=== PATIENT | female | born 1990 | race Caucasian/White ===

== ENCOUNTER 2016-07-12 11:06 | Emergency (ER) | payer OTHER ==
--- NOTE | 2016-07-12 11:33 | CPEKG ---
Heart Rate: 82 RR Interval: 732 P-R Interval: 132 QRSD Interval: 84 QT Interval: 368 QTC Interval: 430 P [place]: 11 QRS [place]: 19 T Wave [place]: 43 EKG Severity - NORMAL ECG - EKG Impression: SINUS RHYTHM Electronically Signed By: Jacklyn Sheldon 12-Jul-2016 16:50:36
[2016-07-12 11:50] LABS: % IMMATURE GRANULYOCYTES 0.2 % (0.0-1.1); ABSOLUTE IMMATURE GRANULOCYTES 0.01 10^3/uL (0.00-0.10); ADD DIFF? NO; ADD MORPH? NO; ADD SCAN? NO; ATYPICAL LYMPHOCYTE FLAG 10 (0-99); FRAGMENT RBC FLAG 0 (0-99); HEMATOCRIT 39.1 % (38.0-47.0); HEMOGLOBIN 13.4 g/dL (12.6-16.3); LEFT SHIFT FLG 0 (0-99); LIPEMIA HEMOLYSIS FLAG 90 (0-99); MEAN CELL HEMOGLOBIN 29.8 pg (27.9-34.1); MEAN CELL HEMOGLOBIN CONCENTR. 34.3 g/dL (32.4-36.7); MEAN CELL VOLUME 86.9 fL (81.5-99.8); MEAN PLATELET VOLUME 10.6 fL (8.7-11.7); PLATELET CLUMPS FLAG 0 (0-99); PLATELET COUNT 304 10^3/uL (150-400); RED CELL DISTRIBUTION WIDTH 12.9 % (11.5-15.2)
[2016-07-12 12:09] LABS: ANION GAP 13 mEq/L (8-16); CALCIUM 9.2 mg/dL (8.5-10.4); CARBON DIOXIDE 22 mEq/l (22-31); CHLORIDE 106 mEq/L (97-110); CREATININE 0.7 mg/dL (0.6-1.0); GLOMERULAR FILTRATION RATE > 60; GLUCOSE 83 mg/dL (70-100); POTASSIUM 4.2 mEq/L (3.5-5.2); SODIUM 141 mEq/L (134-144)
--- NOTE | 2016-07-12 12:13 | DX ---
PA and lateral chest History: Chest pain and tightness. Comparison: None available. Findings: The lungs are clear. There is no pneumothorax or pleural effusion. The heart and pulmona ry vasculature are normal. Minimal leftward curvature of the lower thoracic spine is noted. Impression: No acute findings in the chest.
[2016-07-12 12:21] LABS: TROPONIN I < 0.012 ng/mL (0-0.034)
--- NOTE | 2016-07-12 12:48 | EDPHY ---
H & P Stated Complaint: left ant chest pain worse with movement x 1 day - Personal History LMP (Females 10-55): 22-28 Days Ago Current Tetanus/Diphtheria Vaccine: Unsure Current Tetanus Diphtheria and Acellular Pertussis (TDAP): Unsure - Medical/Surgical History Hx Asthma: No Hx Chronic Respiratory Disease: No Hx Diabetes: No Hx Cardiac Disease: No Hx Renal Disease: No Hx Cirrhosis: No Hx Alcoholism: No Hx HIV/AIDS: No Hx Splenectomy or Spleen Trauma: No Other PMH: on oral control. recent air travel 2 weeks ago - Social History Smoking Status: Never smoked HPI/ROS: CHIEF COMPLAINT: Left-sided chest pain for the past 2 days HISTORY OF PRESENT ILLNESS: 25-year-old immunocompetent female with no coagulopathic disorder, nonsmoker, flew from [place] 2 weeks ago, complaining of mild left-sided chest pain which is reproducible with range of motion of the left upper extremity for the past 48 hours. Atraumatic. No dyspnea. No radiation of pain. She has been able to perform her usual cardiovascular workouts including aggressive cardio workout last evening and did not experience chest pain ordyspnea with exertion and did not have to cease these activities prematurely. No trauma. No back pain. No peripheral edema or discoloration. No thromboembolic disorder history PRIMARY CARE PROVIDER: none locally REVIEW OF SYSTEMS: A ten point review of systems was performed and is negative with the exception of the items mentioned in the HPI PAST MEDICAL & SURGICAL HISTORY: No history of coagulopathic disorder or cardiac disease SOCIAL HISTORY:nonsmoker . No drug use FAMILY HISTORY: No family history of coagulopathic disorder. No family history of premature cardiac disease PHYSICAL EXAM (Prior to examination, patient consented to physical exam, hands were washed and my usual and customary physical exam procedures followed) 1) GENERAL: Well-developed, well-nourished, alert and oriented. Appears to be in no acute distress. 2) HEAD: Normocephalic, atraumatic 3) HEENT: Pupils equal, round, reactive to light bilaterally. Sclera anicteric. Nasopharynx, oropharynx, clear, no lesions. Ears bilaterally with normal tympanic membranes. 4) NECK: Full range of motion, no meningeal signs. 5) LUNGS: Clear auscultation bilaterally, no wheezes, no rhonchi, no retractions. 6) HEART: Regular rate and rhythm, no murmur, no heave, no gallop. 7) ABDOMEN: No guarding, no rebound, no focal tenderness, negative McBurney's, negative Hunter's, negative Rovsing's, negative peritoneal sign, 8) MUSCULOSKELETAL: Moving all extremities, no focal areas of tenderness, no obvious trauma. No peripheral edema or discoloration. Negative Homans no palpable cord 9) BACK: No CVA tenderness, no midline vertebral tenderness, no fluctuance, no step-off, no obvious trauma, no visual or palpable abnormality. 10) SKIN: No rash, no petechiae. 11) Psychiatric: Patient is oriented X 3, there is no agitation. DIFFERENTIAL DIAGNOSIS: In no particular order, including but not limited to myocardial ischemia, pulmonary embolus, chest wall pain, pleural inflammation and pulmonary infectious causes. (Maryanne Bar) Constitutional: Initial Vital Signs Temperature (C) 36.5 C 07/12/16 11:18 Heart Rate 88 07/12/16 11:18 Respiratory Rate 16 07/12/16 11:18 Blood Pressure 128/80 H 07/12/16 11:18 O2 Sat (%) 98 07/12/16 11:18 O2 Delivery Mode Room Air Allergies/Adverse Reactions: ibuprofen Allergy (Verified 07/12/16 11:31) Home Medications: Medication Instructions Recorded Acetaminophen [Tylenol Extra 500 mg PO Q8 #10 tablet 07/12/16 Strength] Medical Decision Making - Diagnostics Imaging: PA and lateral chest History: Chest pain and tightness. Comparison: None available. Findings: The lungs are clear. There is no pneumothorax or pleural effusion. The heart and pulmonary vasculature are normal. Minimal leftward curvature of the lower thoracic spine is noted. Impression: No acute findings in the chest. Dictated By: Estuardo Spaulding MD Images reviewed by myself (Maryanne Bar) ED Course/Re-evaluation: Patient has been evaluated serial exams., discussed with Dr Sheldon (Maryanne Bar) Other Provider: The patient was evaluated and managed by the physician neurosurgical physician assistant. I have reviewed this chart and I agree with the findings and plan of care as documented , as indicated by my signature. I am the secondary supervising physician. ( Jacklyn Sheldon) - Data Points Laboratory Results: Laboratory Results 07/12/16 11:37 07/12/16 11:37 07/12/16 11:37 WBC 5.30 10^3/uL (3.80-9.50) RBC 4.50 10^6/uL (4.18-5.33) Hgb 13.4 g/dL (12.6-16.3) Hct 39.1 % (38.0-47.0) MCV 86.9 fL (81.5-99.8) MCH 29.8 pg (27.9-34.1) MCHC 34.3 g/dL (32.4-36.7) RDW 12.9 % (11.5-15.2) Plt Count 304 10^3/uL (150-400) MPV 10.6 fL (8.7-11.7) Neut % (Auto) 42.4 % (39.3-74.2) Lymph % (Auto) 48.3 H % (15.0-45.0) [place] % (Auto) 7.9 % (4.5-13.0) Eos % (Auto) 0.6 % (0.6-7.6) Baso % (Auto) 0.6 % (0.3-1.7) Nucleat RBC Rel Count 0.0 % (0.0-0.2) Absolute Neuts (auto) 2.25 10^3/uL (1.70-6.50) Absolute Lymphs (auto) 2.56 10^3/uL (1.00-3.00) Absolute Monos (auto) 0.42 10^3/uL (0.30-0.80) Absolute Eos (auto) 0.03 10^3/uL (0.03-0.40) Absolute Basos (auto) 0.03 10^3/uL (0.02-0.10) Absolute Nucleated RBC 0.00 10^3/uL (0-0.01) Immature Gran % 0.2 % (0.0-1.1) Immature Gran # 0.01 10^3/uL (0.00-0.10) D-Dimer 0.29 ug/mLFEU (0.00-0.50) Sodium 141 mEq/L (134-144) Potassium 4.2 mEq/L (3.5-5.2) Chloride 106 mEq/L (97-110) Carbon Dioxide 22 mEq/l (22-31) Anion Gap 13 mEq/L (8-16) BUN 12 mg/dL (7-23) Creatinine 0.7 mg/dL (0.6-1.0) Estimated GFR > 60 Glucose 83 mg/dL (70-100) Calcium 9.2 mg/dL (8.5-10.4) Troponin I < 0.012 ng/mL (0-0.034) Beta HCG, Qual NEGATIVE Departure - Departure Disposition: Home, Routine, Self-Care Clinical Impression: Left-sided chest wall pain Condition: Good Instructions: Chest Pain (ED) Additional Instructions: Seek medical attention if you develop new or worsening chest pain, if you develop new or worsening shortness of breath, or any other symptoms that concern you. Referrals: Cheryle Tyler MD [Medical Doctor] - As per Instructions Prescriptions: Acetaminophen [Tylenol Extra Strength] 500 mg PO Q8 #10 tablet
[2016-07-12 13:42] VITALS: BP 128/72; PULSE 80; RESP 18; TEMP 98.2; O2SAT 97
== END 2016-07-12 13:43 | disposition home or self-care (01) ==
DX: R07.89 Other chest pain (principal)